=== PATIENT | male | born 1980 | race Caucasian/White ===

== ENCOUNTER 2018-12-13 11:33 | Emergency (ER) | payer OTHER ==
[2018-12-13 11:48] VITALS: BP 158/98; PULSE 95; RESP 18; TEMP 97.6
--- NOTE | 2018-12-13 12:31 | ED ---
Male Urogenital HPI - General Chief complaint: Urogenital Stated complaint: Unable to Urinate Time Seen by Provider: 12/13/18 12:06 Source: patient, RN notes reviewed Mode of arrival: ambulatory Limitations: no limitations - History of Present Illness Initial comments: 38-year-old male presents emergency Department chief complaint of unable to urinate. Patient states that something else swelling but states he feels he has to go and cannot urinate this time. Patient had this problem in the past and Dr. Morrow had to place a Ramey. Patient denies any recent urinary tract infections. Reports no fever or chills no nausea vomiting diarrhea constipation no flank pain. - Related Data Previous Rx's Medication Instructions Recorded Tamsulosin [Flomax] 0.4 mg PO DAILY #7 cap 12/13/18 Allergies Allergy/AdvReac Type Severity Reaction Status Date / Time No Known Allergies Allergy Verified 12/13/18 12:09 Review of Systems ROS Statement: Those systems with pertinent positive or pertinent negative responses have been documented in the HPI. ROS Other: All systems not noted in ROS Statement are negative. Past Medical History Past Medical History: Hypertension Additional Past Medical History / Comment(s): difficulty urinating 7 years ago History of Any Multi-Drug Resistant Organisms: None Reported Past Surgical History: No Surgical Hx Reported Past Psychological History: No Psychological Hx Reported Smoking Status: Never smoker Past Alcohol Use History: None Reported Past Drug Use History: None Reported General Exam Limitations: no limitations General appearance: alert, in no apparent distress Head exam: Present: atraumatic, normocephalic, normal inspection Respiratory exam: Present: normal lung sounds bilaterally. Absent: respiratory distress, wheezes, rales, rhonchi, stridor Cardiovascular Exam: Present: regular rate, normal rhythm, normal heart sounds. Absent: systolic murmur, diastolic murmur, rubs, gallop, clicks GI/Abdominal exam: Present: soft, tenderness (Suprapubic), normal bowel sounds. Absent: distended, guarding, rebound, rigid Back exam: Absent: CVA tenderness (R), CVA tenderness (L) Neurological exam: Present: alert, oriented X3, CN II-XII intact Skin exam: Present: warm, dry, intact, normal color. Absent: rash Course Vital Signs 12/13/18 11:44 Temperature 97.6 F Pulse Rate 95 Respiratory 18 Rate Blood Pressure 158/98 O2 Sat by Pulse 98 Oximetry Medical Decision Making - Medical Decision Making 38-year-old male presented from for unable to urinate. Patient had over 500 and most of urine in the bladder on bladder scan. Patient had Ramey catheter ordered was unable to place Ramey by multiple attempts of nurse in by Dr. Kent. Urology was contacted. , Patient then subsequently was able to urinate. Patient will follow-up with urology in office return parameters were discussed. Patient was started on Flomax. - Lab Data Lab Results 12/13/18 Range/Units 13:35 Urine Color Yellow Urine Appearance Clear (Clear) Urine pH 6.0 (5.0-8.0) Ur Specific [place] 1.014 (1.001-1.035) Urine Protein 1+ H (Negative) Urine Glucose (UA) Negative (Negative) Urine Ketones Trace H (Negative) Urine Blood Moderate H (Negative) Urine Nitrite Negative (Negative) Urine Bilirubin Negative (Negative) Urine Urobilinogen <2.0 (<2.0) mg/dL Ur Leukocyte Esterase Negative (Negative) Urine RBC 23 H (0-5) /hpf Urine WBC 6 H (0-5) /hpf Urine Bacteria Many H (None) /hpf Urine Mucus Rare H (None) /hpf Urine Sperm Many H (None) /hpf Disposition Clinical Impression: Urinary retention Disposition: HOME SELF-CARE Condition: Stable Instructions (If sedation given, give patient instructions): Urinary Retention in Men (ED) Additional Instructions: Please return to the Emergency Department if symptoms worsen or any other concerns. Prescriptions: Tamsulosin [Flomax] 0.4 mg PO DAILY #7 cap Is patient prescribed a controlled substance at d/c from ED?: No Referrals: Alpesh Garrido MD [Primary Care Provider] - 1-2 days Butch Morrow MD [STAFF PHYSICIAN] - 1-2 days Time of Disposition: 14:04
[2018-12-13 14:00] LABS: Appearance,Urine Clear (Clear); Bacteria,Urine Many /hpf; Bilirubin,Urine Negative (Negative); Blood,Urine Moderate (Negative); Color,Urine Yellow; Glucose,Urine (UA) Negative (Negative); Ketones,Urine Trace (Negative); Leukocyte Esterase,Urine Negative (Negative); Mucus,Urine Rare /hpf; Nitrite,Urine Negative (Negative); Protein,Urine 1+ (Negative); RBC,Urine 23 /hpf (0-5); Specific Gravity,Urine 1.014 (1.001-1.035); Sperm,Urine Many /hpf; Urobilinogen,Urine <2.0 mg/dL (<2.0)
== END 2018-12-13 14:10 | disposition home or self-care (01) ==
LOC: EC 11:33
DX: R33.9 Retention of urine, unspecified (principal)
CPT/HCPCS: 81001; 99284

== ENCOUNTER 2018-12-14 14:30 | Emergency (ER) | payer OTHER ==
--- NOTE | 2018-12-14 15:04 | ED ---
Male Urogenital HPI - General Source: patient, RN notes reviewed Mode of arrival: ambulatory Limitations: no limitations <Bjorn Prather - Last Filed: 12/14/18 15:03> <Ozzie Madera - Last Filed: 12/14/18 17:11> - General Chief complaint: Urogenital Stated complaint: unable to urinate Time Seen by Provider: 12/14/18 14:51 - History of Present Illness Initial comments: 38-year-old male presents emergency Department chief complaint of difficulty urinating. Patient was seen in emergency room yesterday and was attempted to have a Ramey placed under unable to. While waiting for urology patient was able to urinate by herself without difficulty. He states he's urinated throughout the night states last urinated 3 hours ago but states he still feels that he has to go he has mild pressure. Patient had his issues in the past in which he did have a Ramey placed by urology. Patient denies any fevers or chills no nausea vomiting diarrhea constipation. (Bjorn Prather) - Related Data Previous Rx's Medication Instructions Recorded Tamsulosin [Flomax] 0.4 mg PO DAILY #7 cap 12/13/18 Allergies Allergy/AdvReac Type Severity Reaction Status Date / Time No Known Allergies Allergy Verified 12/14/18 14:49 Review of Systems ROS Other: All systems not noted in ROS Statement are negative. <Bjorn Prather - Last Filed: 12/14/18 15:03> ROS Other: All systems not noted in ROS Statement are negative. <Ozzie Madera - Last Filed: 12/14/18 17:11> ROS Statement: Those systems with pertinent positive or pertinent negative responses have been documented in the HPI. Past Medical History Past Medical History: Hypertension Additional Past Medical History / Comment(s): difficulty urinating 7 years ago History of Any Multi-Drug Resistant Organisms: None Reported Past Surgical History: No Surgical Hx Reported Past Psychological History: No Psychological Hx Reported Smoking Status: Never smoker Past Alcohol Use History: None Reported Past Drug Use History: None Reported <Bjorn Prather - Last Filed: 12/14/18 15:03> General Exam Limitations: no limitations General appearance: alert, in no apparent distress Head exam: Present: atraumatic, normocephalic, normal inspection Neck exam: Present: normal inspection. Absent: tenderness, meningismus, lymphadenopathy Respiratory exam: Present: normal lung sounds bilaterally. Absent: respiratory distress, wheezes, rales, rhonchi, stridor Cardiovascular Exam: Present: regular rate, normal rhythm, normal heart sounds. Absent: systolic murmur, diastolic murmur, rubs, gallop, clicks GI/Abdominal exam: Present: soft, normal bowel sounds. Absent: distended, tenderness, guarding, rebound, rigid Skin exam: Present: warm, dry, intact, normal color. Absent: rash <Bjorn Prather - Last Filed: 12/14/18 15:03> Course Vital Signs 12/14/18 14:49 Temperature 97.7 F Pulse Rate 107 H Respiratory 20 Rate Blood Pressure 149/90 O2 Sat by Pulse 97 Oximetry Medical Decision Making <Ozzie Madera - Last Filed: 12/14/18 17:11> - Medical Decision Making Nurse was unable to place Ramey however following this patient did urinate 350 mL. Repeat bladder scan showed only 38 mm left. (Ozzie Madera) Disposition <Bjorn Prather - Last Filed: 12/14/18 15:03> Is patient prescribed a controlled substance at d/c from ED?: No Time of Disposition: 17:09 <Ozzie Madera - Last Filed: 12/14/18 17:11> Clinical Impression: Urinary retention Disposition: HOME SELF-CARE Condition: Stable Instructions (If sedation given, give patient instructions): Urinary Retention in Men (ED) Additional Instructions: Please follow-up Sunday with urology. Return for unable to urinate, pain, fever, worsening symptoms or other concerns. Continue Flomax. Referrals: Alpesh Garrido MD [Primary Care Provider] - 1-2 days Mark Jennings MD [STAFF PHYSICIAN] - 1-2 days
[2018-12-14] MEDS ORDERED: LIDOCAINE URO-JET JELLY 2% 5 ML KIT URETHRAL ONE (16:24)
[2018-12-14 17:23] VITALS: BP 152/96; PULSE 76; RESP 18; TEMP 97.8
== END 2018-12-14 17:23 | disposition home or self-care (01) ==
LOC: EC 14:30
DX: R33.9 Retention of urine, unspecified (principal)
CPT/HCPCS: 99283

== ENCOUNTER 2019-08-31 12:06 | Emergency (ER) | payer OTHER ==
[2019-08-31 12:10] VITALS: BP 151/85; PULSE 84; RESP 18; TEMP 98.2
--- NOTE | 2019-08-31 13:10 | ED ---
Male Urogenital HPI - General Chief complaint: Urogenital Stated complaint: Unable to void Time Seen by Provider: 08/31/19 12:08 Source: patient Mode of arrival: ambulatory Limitations: no limitations - History of Present Illness Initial comments: 39yo male with history of urinary retention and urethral lesion presenting for evaluation of urinary retention. Patient states that he peed normally this morning. Then began having urinary distention similar to what he experienced in December. Denies fever, including dysuria urgency frequency or any other symptoms prior to today. Remaining review systems negative patient states he does follow up with urology and has an appointment in October for a specialist regarding a urethral lesion at [place] - Related Data Previous Rx's Medication Instructions Recorded Tamsulosin [Flomax] 0.4 mg PO DAILY #7 cap 12/13/18 Tamsulosin [Flomax] 0.4 mg PO DAILY 7 Days #7 cap 08/31/19 Allergies Allergy/AdvReac Type Severity Reaction Status Date / Time No Known Allergies Allergy Verified 08/31/19 12:10 Review of Systems ROS Statement: Those systems with pertinent positive or pertinent negative responses have been documented in the HPI. ROS Other: All systems not noted in ROS Statement are negative. Past Medical History Past Medical History: Hypertension Additional Past Medical History / Comment(s): difficulty urinating 7 years ago History of Any Multi-Drug Resistant Organisms: None Reported Past Surgical History: No Surgical Hx Reported Past Psychological History: No Psychological Hx Reported Smoking Status: Never smoker Past Alcohol Use History: None Reported Past Drug Use History: None Reported General Exam - General Exam Comments Initial Comments: General: The patient is awake and alert, in no distress, and does not appear acutely ill. Eye: Pupils are equal, round and reactive to light, extra-ocular movements are intact. No nystagmus. There is normal conjunctiva bilaterally. No signs of icterus. Cardiovascular: There is a regular rate and rhythm. No murmur, rub or gallop is appreciated. Respiratory: Lungs are clear to auscultation, respirations are non-labored, breath sounds are equal. No wheezes, stridor, rales, or rhonchi. Gastrointestinal: Soft, non-distended, non-tender abdomen without masses or organomegaly noted. There is no rebound or guarding present. Musculoskeletal: Normal ROM, no tenderness. Strength 5/5. Sensation intact. Pulses equal bilaterally 2+. Neurological: A&O x 3. CN II-XII intact grossly, There are no obvious motor or sensory deficits. Coordination appears grossly intact. Speech is normal. Skin: Skin is warm and dry and no rashes or lesions are noted. Psychiatric: Cooperative, appropriate mood & affect, normal judgment. Limitations: no limitations Course Vital Signs 08/31/19 08/31/19 12:08 15:14 Temperature 98.2 F 98.2 F Pulse Rate 84 84 Respiratory 18 18 Rate Blood Pressure 151/85 151/85 O2 Sat by Pulse 98 98 Oximetry Medical Decision Making - Medical Decision Making 39-year-old male presenting today for chief complaint of urinary retention. Patient has had difficulty with catheterizations in the past. Patient has had these similar complaints in December. Patient states he has a upcoming appointment with a specialist for a urethral lesion. Patient states that he takes tamsulosin daily. Patient had attempted catheterization after he spent casing voided 300 mL. Patient still had residual urinary retention. The less discomfort. Attempt again using the cystoscopy cart and my attending provider Dr. Madera however this was unsuccessful. However patient spent case he urinated and bladder scan was at 0 mL. At this time will discharge patient as he spontaneously urinating. It was recommended patient follow-up with his urologist and return parameters were discussed including immediate return for urinary retention. Patient verbalized understanding and was discharged appearing well initial urinalysis was taken after catheter attempt - Lab Data Lab Results 08/31/19 Range/Units 13:08 Urine Color Yellow Urine Appearance Clear (Clear) Urine pH 5.5 (5.0-8.0) Ur Specific [place] 1.014 (1.001-1.035) Urine Protein Trace H (Negative) Urine Glucose (UA) Negative (Negative) Urine Ketones Negative (Negative) Urine Blood Small H (Negative) Urine Nitrite Negative (Negative) Urine Bilirubin Negative (Negative) Urine Urobilinogen <2.0 (<2.0) mg/dL Ur Leukocyte Esterase Trace H (Negative) Urine RBC 20 H (0-5) /hpf Urine WBC 12 H (0-5) /hpf Ur Squamous Epith Cells 1 (0-4) /hpf Urine Bacteria Occasional H (None) /hpf Hyaline Casts 1 (0-2) /lpf Urine Mucus Occasional H (None) /hpf Disposition Clinical Impression: Urinary retention Disposition: HOME SELF-CARE Condition: Good Instructions (If sedation given, give patient instructions): Urinary Retention in Men (ED) Additional Instructions: Please use medication as discussed. Please follow-up with Dr. Morrow. Please return to emergency room if the symptoms increase or worsen or for any other concerns. Prescriptions: Tamsulosin [Flomax] 0.4 mg PO DAILY 7 Days #7 cap Is patient prescribed a controlled substance at d/c from ED?: No Referrals: Alpesh Garrido MD [Primary Care Provider] - 1-2 days Butch Morrow MD [STAFF PHYSICIAN] - 1-2 days Time of Disposition: 15:09
[2019-08-31] MEDS ORDERED: LIDOCAINE URO-JET JELLY 2% 5 ML KIT URETHRAL ONE (13:22)
[2019-08-31 13:53] LABS: Appearance,Urine Clear (Clear); Bacteria,Urine Occasional /hpf; Bilirubin,Urine Negative (Negative); Blood,Urine Small (Negative); Color,Urine Yellow; Glucose,Urine (UA) Negative (Negative); Hyaline Casts,Urine 1 /lpf (0-2); Ketones,Urine Negative (Negative); Leukocyte Esterase,Urine Trace (Negative); Mucus,Urine Occasional /hpf; Nitrite,Urine Negative (Negative); PH, Urine 5.5 (5.0-8.0); Protein,Urine Trace (Negative); RBC,Urine 20 /hpf (0-5); Specific Gravity,Urine 1.014 (1.001-1.035); Squamous Epithelial Cell,Urine 1 /hpf (0-4); Urobilinogen,Urine <2.0 mg/dL (<2.0); WBC,Urine 12 /hpf (0-5)
== END 2019-08-31 15:18 | disposition home or self-care (01) ==
LOC: EC 12:06
DX: R33.9 Retention of urine, unspecified (principal); I10 Essential (primary) hypertension
CPT/HCPCS: 51798; 81001; 99284

== ENCOUNTER 2019-09-01 03:34 | Emergency (ER) | payer OTHER ==
[2019-09-01 03:44] VITALS: RESP 18; TEMP 97.9
[2019-09-01] MEDS ORDERED: LIDOCAINE URO-JET JELLY 2% 5 ML KIT URETHRAL ONE (03:58)
--- NOTE | 2019-09-01 04:14 | ED ---
Male Urogenital HPI - General Chief complaint: Urogenital Stated complaint: Trouble Urinating Time Seen by Provider: 09/01/19 03:39 Source: patient, family Mode of arrival: ambulatory Limitations: no limitations - History of Present Illness Initial comments: Arturo is a 39-year-old gentleman with a history of urethral strictures for which she is followed with urology in the past, patient has had fully catheters in the past due to obstruction. Patient was seen and evaluated in our emergency department yesterday where he was straight cathed, he was subsequently able to urinate however since going home reports he's urinated 2 times, the second time he had significant dysuria and now has not been able to urinate for a number of hours despite the urge to do so. Patient reports he feels that he needs a catheter. - Related Data Previous Rx's Medication Instructions Recorded Tamsulosin [Flomax] 0.4 mg PO DAILY #7 cap 12/13/18 Tamsulosin [Flomax] 0.4 mg PO DAILY 7 Days #7 cap 08/31/19 Allergies Allergy/AdvReac Type Severity Reaction Status Date / Time No Known Allergies Allergy Verified 09/01/19 03:43 Review of Systems ROS Statement: Those systems with pertinent positive or pertinent negative responses have been documented in the HPI. ROS Other: All systems not noted in ROS Statement are negative. Past Medical History Past Medical History: Hypertension Additional Past Medical History / Comment(s): difficulty urinating 7 years ago History of Any Multi-Drug Resistant Organisms: None Reported Past Surgical History: No Surgical Hx Reported Past Psychological History: No Psychological Hx Reported Smoking Status: Never smoker Past Alcohol Use History: None Reported Past Drug Use History: None Reported General Exam - General Exam Comments Initial Comments: Physical Exam GENERAL: Patient is well-developed and well-nourished. Patient is nontoxic and well-hydrated and is in no distress. HENT: Normocephalic, Atraumatic. EYES: PERRL, EOMI PULMONARY: Unlabored respirations. CARDIOVASCULAR: RRR Warm and well perfused extremities ABDOMEN: Non-distended SKIN: No rashes or bruising : Deferred NEUROLOGIC: Alert and oriented Normal speech Normal gait MUSCULOSKELETAL: Moving all extremities with no apparent injury PSYCHIATRIC: No SI/HI Limitations: no limitations Course Vital Signs 09/01/19 09/01/19 03:38 05:07 Temperature 97.9 F Pulse Rate 79 80 Respiratory 18 18 Rate Blood Pressure 154/86 162/90 O2 Sat by Pulse 97 97 Oximetry Medical Decision Making - Medical Decision Making was seen and evaluated history was obtained from the patient and review of medical record Patient has a history of ureteral stricture his been referred to [facility] for follow-up. Patient was seen yesterday for urinary retention with straight cath and was subsequently able to urinate and was discharged home. Patient returns today with complaints of difficulty urinating. Bladder scan shows 475 and the bladder. An attempt was made to pace a Ramey catheter was initially on successful. Patient was then able to void greater than 400 mL and that a urinal. Urinalysis with no signs of infection. At this time patient is not experiencing urinary retention, patient will follow up with his urologist on outpatient basis. - Lab Data Lab Results 09/01/19 Range/Units 04:22 Urine Color Yellow Urine Appearance Clear (Clear) Urine pH 6.5 (5.0-8.0) Ur Specific [place] 1.014 (1.001-1.035) Urine Protein Trace H (Negative) Urine Glucose (UA) Negative (Negative) Urine Ketones Trace H (Negative) Urine Blood Negative (Negative) Urine Nitrite Negative (Negative) Urine Bilirubin Negative (Negative) Urine Urobilinogen <2.0 (<2.0) mg/dL Ur Leukocyte Esterase Trace H (Negative) Urine RBC 6 H (0-5) /hpf Urine WBC 5 (0-5) /hpf Urine Bacteria Rare H (None) /hpf Urine Mucus Occasional H (None) /hpf Disposition Clinical Impression: Urinary retention Disposition: HOME SELF-CARE Condition: Stable Instructions (If sedation given, give patient instructions): Urinary Retention in Men (ED) Is patient prescribed a controlled substance at d/c from ED?: No Referrals: Alpesh Garrido MD [Primary Care Provider] - 1-2 days Butch Morrow MD [STAFF PHYSICIAN] - 1-2 days
[2019-09-01 04:34] LABS: Appearance,Urine Clear (Clear); Bacteria,Urine Rare /hpf; Bilirubin,Urine Negative (Negative); Blood,Urine Negative (Negative); Color,Urine Yellow; Glucose,Urine (UA) Negative (Negative); Ketones,Urine Trace (Negative); Leukocyte Esterase,Urine Trace (Negative); Mucus,Urine Occasional /hpf; Nitrite,Urine Negative (Negative); PH, Urine 6.5 (5.0-8.0); Protein,Urine Trace (Negative); RBC,Urine 6 /hpf (0-5); Specific Gravity,Urine 1.014 (1.001-1.035); Urobilinogen,Urine <2.0 mg/dL (<2.0); WBC,Urine 5 /hpf (0-5)
[2019-09-01 05:09] VITALS: BP 162/90; PULSE 80
== END 2019-09-01 05:26 | disposition home or self-care (01) ==
LOC: EC 03:34
DX: R33.9 Retention of urine, unspecified (principal); I10 Essential (primary) hypertension
CPT/HCPCS: 51702; 81001; 87086; 99284